=== PATIENT | female | born 1980 | race Caucasian/White ===

== ENCOUNTER 2016-05-30 12:49 | Inpatient (IN) | payer OTHER ==
--- NOTE | ~2016-05-30 | HP ---
Unit #: [id number] #: [id number] Patient: PAMELA MUNOZ [id number] [address] [address] [id number] I MR#: [id number] NAME: PAMELA MUNOZ ROOM: 93990 Age: 36 Sex: F Admission Date: 05/30/2016 : 1980 Attending Physician: Eloy Cleaning M.D. Primary Care Physician: [facility] HISTORY AND PHYSICAL REASON FOR ADMISSION 1. Right ureteral stone. 2. Pyelonephritis. HISTORY OF PRESENT ILLNESS The patient is a 36-year-old female with a history of nephrolithiasis. She began developing right flank pain approximately 4 to 5 days prior to admission which worsened yesterday. She was having chills and subjective fever. She has been having nausea but no vomiting. She presented to the emergency room. She was found to have a right 4 mm proximal ureteral stone and a temperature of 100.1. PAST SURGICAL HISTORY 1. Bilateral ureteroscopy. 2. . 3. Right arm surgery. PAST MEDICAL HISTORY Nephrolithiasis. HOME MEDICATIONS 1. Effexor. 2. Flonase. 3. Claritin. ALLERGIES No known drug allergies. FAMILY HISTORY Noncontributory. REVIEW OF SYSTEMS A 12-point review of systems was performed and was positive for right flank pain, fevers, nausea, chills. PHYSICAL EXAMINATION VITAL SIGNS: Temperature 100.1, blood pressure 134/96, pulse 89. HEENT: Normocephalic, atraumatic. NECK: No lymphadenopathy. LUNGS: Patient is breathing comfortably. ABDOMEN: Soft, nontender, nondistended. EXTREMITIES: No clubbing, cyanosis, or edema. DIAGNOSTIC STUDIES Unit #: [id number] #: [id number] Patient: PAMELA MUNOZ LABORATORY: Creatinine 0.6. White blood cell count 14.5. Urinalysis leukocyte esterase positive, nitrite positive, positive for blood, innumerable wbc's and 10-25 rbc's. IMAGING: CT scan of the abdomen and pelvis independently reviewed as above which reveals a right 4 mm proximal ureteral stone as well as some small right nonobstructing stones. ASSESSMENT AND PLAN 1. Right ureteral stone. 2. Pyelonephritis. PLAN 1. She has been admitted. 2. Will do blood and urine cultures. 3. Will do a cystoscopy, right retrograde pyelogram and right stent. The risks, benefits, and alternatives including bleeding, infection, damage to adjacent structures, the need for further surgery, need for nephrostomy tube and all other risks were discussed with patient. Rocephin has been administered. Dictated by Willard Omalley/usman TD: 05/30/2016 17:53 JOB #: [id number] HISTORY AND PHYSICAL Page 1 of 1 X Eloy Cleaning MD X HISTORY AND PHYSICAL
--- NOTE | ~2016-05-30 | DS ---
Unit #: [id number] #: [id number] Patient: PAMELA MUNOZ [id number] [address] [id number] I MR#: [id number] NAME: PAMELA MUNOZ ROOM: 45 Age: 36 Sex: F Admission Date: 05/30/2016 : 1980 Discharge Date: 06/01/2016 Attending Physician: Eloy Cleaning M.D. [facility] DIS[facility] SUMMARY PRIMARY DIAGNOSIS Obstructive right Escherichia coli pyelonephritis. PROCEDURE Cystoscopy with right stent placement, Dr. Cleaning, day of admission with retrogrades. HISTORY This patient presented symptomatic with a 4 mm right ureteral stone, fever, and urinary tract infection. She was taken to the operating room the day of admission and the above procedure performed. She had a Aguilar catheter in place and was treated with intravenous Rocephin. Postoperatively, her recovery was prompt and the next day, her catheter was able to be removed and she was voiding. She did, however, have a low potassium that required aggressive supplementation before achieving a potassium of 4.1 the day of discharge. Her admission white count of 14 corrected to 7.9. She did initially have some nausea and vomiting which resolved also. On the day of discharge, she was doing well in all regard simply waiting for the final culture results in the afternoon which showed pansensitive E. coli. DISCHARGE MEDICATIONS 1. Bactrim double strength one twice daily for 10 days. 2. Phenergan 25 mg #12 one every six hours as needed. 3. Percocet 5/325 #30 one to two every four to six hours as needed. 4. Routine home medications. Dictated by... Ramirez Plummer M.D. MARISA/steff TD: 06/03/2016 15:36 JOB #: [id number] CC: [facility]. Unit #: [id number] #: [id number] Patient: PAMELA MUNOZ DISCHARGE SUMMARY Page 1 of 1 X Ramirez Plummer MD X DISCHARGE SUMMARY
--- NOTE | ~2016-05-30 | CT4 ---
[facility] A Service of [facility] & [facility] RADIOLOGY TEXT RESULTS PATIENT: PAMEL[facility]UNOZ [facility] [id number] [birth year] UNIT #: [id number] AGE: [address]: Eloy Cleaning MD SEX: F ORDER DR: [id number] [facility] [address] [place], [place] [address] [id number] E MR#: [id number] Acc #: [id number] NAME: PAMELA MUNOZ : 1980 SEX: F STUDY DATE/TIME: 05/30/2016 14:07 UNIT: MARGARET ROOM: STUDY DESCRIPTION: CT Abd and Pelv Wo Cont Attending Physician: Mainor Ignacio M.D. Ordering Physician: Mainor Ignacio M.D. Primary Care Physician: [facility], MEDICAL IMAGING REPORT This report is preliminary unless electronic signature is present EXAM CT abdomen and pelvis without contrast 05/30/2016 1407 hours HISTORY 36-year-old woman with bilateral flank pain for 2 days. History of renal stents for stones. COMPARISON CT abdomen 06/30/2015 TECHNIQUE Helical noncontrasted images were obtained from the lung bases through the pubic symphysis. Sagittal and coronal reconstructions were performed. Total exam DLP 545 mGy-cm. This CT exam was performed with one or more of the following radiation dose reduction techniques: automatic control, adjustment of mA and/or kV according to patient size, and iterative reconstruction. FINDINGS Images through the lung bases are clear. There are no effusions. Images through the abdomen demonstrate a normal noncontrasted appearance of the liver, spleen, pancreas, gallbladder and bile ducts. The adrenal glands are normal. There are a few punctate 2 mm size stones in the mid right kidney nonobstructing. There is pelvocaliectasis moderate on the right with a right UPJ stone measuring 4 mm. This is similar in size to a previous renal pelvic stone on 06/30/2015. This could represent the same stone or a new stone. It does appear to be causing some degree of obstruction and likely symptoms today. The left kidney demonstrates no definite intrarenal stones. Previous left renal UPJ stone has resolved. There is no pelvocaliectasis or ureterectasis on the left. There are no ureteral or bladder calculi. [facility] A Service of [facility] & [facility] RADIOLOGY TEXT RESULTS PATIENT: PAMELA MUNOZ LOCATION: [facility] [id number] : [birth year] UNIT #: [id number] AGE: [address]: Eloy Cleaning MD SEX: F ORDER DR: Stomach and small bowel are normal. There is no evidence of appendicitis. The colon is decompressed. CT pelvis demonstrates anteverted uterus. There is no adnexal mass or free fluid. IMPRESSION 1. There is a 4 mm right UPJ stone with moderate pelvocaliectasis. Patient previously had a stone in the renal pelvis measuring 4 mm on 06/29/2014. This could represent distal migration of the same stone or a new stone. There a few punctate to 2 mm nonobstructing stones in the mid-right kidney. 2. No definite left intrarenal calculi. Previous left UVJ stone is no longer seen. There is no ureterectasis or ureteral calculus. 3. Normal appendix. Dictated by... Elenita Benoit M.D. THIS IS AN ELECTRONICALLY VERIFIED REPORT Elenita Benoit M.D. at 05/30/2016 5:20 PM MELY/kingsley TD: 05/30/2016 15:42 JOB #: [id number] MEDICAL IMAGING REPORT Page 1 of 1 COPY
--- NOTE | ~2016-05-30 | OR ---
Unit #: [id number] #: [id number] Patient: PAMELA MUNOZ [id number] [address] [address] [id number] Yenny MR#: [id number] NAME: PAMELA MUNOZ ROOM: 95787 Date of Procedure: 05/30/2016 Admission Date: 05/30/2016 Surgeon: Eloy Cleaning M.D. : 1980 Attending Physician: Eloy Cleaning M.D. Primary Care Physician: [facility]. PROCEDURE OPERATIVE NOTE PREOPERATIVE DIAGNOSES 1. Right ureteral stone. 2. Acute pyelonephritis. POSTOPERATIVE DIAGNOSES 1. Right ureteral stone. 2. Acute pyelonephritis. PROCEDURE PERFORMED 1. Cystoscopy. 2. Right retrograde pyelogram. 3. Interpretation of right retrograde pyelogram. 4. Right 6-Cymraes x 24 cm double-J stent. SURGEON Eloy Cleaning M.D. ANESTHESIA General. INDICATIONS FOR PROCEDURE Ms. Munoz is a pleasant 36-year-old female with a 4 mm proximal ureteral stone and acute pyelonephritis. The risks, benefits and alternatives including bleeding, infection, damage to adjacent structures, need for further surgery, need for nephrostomy tube and all the other risks were discussed with the patient. Informed consent was obtained. She wished to proceed. DESCRIPTION OF PROCEDURE Patient was taken to the operative suite and properly identified. After the application of satisfactory general anesthetic, the patient was placed in dorsal lithotomy position. All pressure points were padded to the satisfaction of the surgical, anesthetic and nursing teams. Her genitalia were prepped and draped in the usual sterile fashion. I first passed a 22-Cymraes cystoscope. The entire urethra was normal. The bladder had no tumor, stones or masses. I identified the right ureteral orifice. I passed a 0.035 Sensor wire which coiled in the kidney. I passed a Pollack catheter over the wire. I gently injected contrast. Findings were as follows. INTERPRETATION OF RIGHT RETROGRADE PYELOGRAM: There was moderate to severe hydroureteronephrosis to the level of the proximal ureter. There Unit #: [id number] #: [id number] Patient: PAMELA MUNOZ is a filling defect consistent with a stone. There is a single collecting system. I replaced the wire. I did send a urine culture from the kidney. I passed a 6-Cymraes x 24 cm double-J stent which coiled in the renal pelvis and the bladder. No string was attached. Bladder was emptied. Scope was removed. The patient tolerated the procedure well without complications. Dictated by... Eloy Cleaning M.D. SHELDON/margarito TD: 05/30/2016 18:17 JOB #: [id number] PROCEDURE OPERATIVE NOTE Page 1 of 1 X Eloy Cleaning MD X PROCEDURE OPERATIVE NOTE
[~2016-05-30 12:49] MED LIST: AZITHROMYCIN1 GM PO; BACTRIM DS TABL1 TAB PO; CIPRO PO; EFFEXOR XR150 MG PO; FLONASE 0.05% N16 G1; HYDROCODONE-APA1 T30 PO; NO MEDICATIONS; NORCO 7.5-3251 EACH PO; PERCOCET5/325 PO; PHENERGAN PO; PHENERGAN25 MG PO; PYRIDIUM PO; REGLAN PO; TAB A VITE1 EACH; TYLOX 5/500 CAP1 CAP PO; VICODIN 5/500 T1 TAB PO; ZANTAC150 MG PO; ZOFRAN ODT4 MG PO; ZOFRAN PO
[2016-05-30 13:06] LABS: URINE SOURCE CLEAN CATCH
[2016-05-30 13:07] LABS: BASOPHIL% 0.2 % (0-2.5); HEMATOCRIT 35.8 % (35.0-45.0); HEMOGLOBIN 12.1 gm/dL (12.0-16.0); LYMPHOCYTE# 0.5 X10e3 (1.0-3.5); LYMPHOCYTE% 3.1 % (17.0-45.0); MEAN CELL VOLUME 86.3 FL (83-96); MEAN CORPUSCULAR HEMOGLOBIN 29.2 PG (28-34); MEAN CORPUSCULAR HGB CONC 33.8 g/dL (30-36); MEAN PLATELET VOLUME 9.1 FL (6.5-11.5); MONOCYTE# 0.7 X10e3 (0-1.0); MONOCYTE% 4.7 % (3.0-12.0); NEUTROPHIL# 13.4 X10e3 (1.5-7.1); PLATELET COUNT 231 X10e3 (140-420); RED BLOOD COUNT 4.15 X10e (3.90-5.30); RED CELL DISTRIBUTION WIDTH 12.7 % (11.0-15.5); WHITE BLOOD COUNT 14.5 X10e3 (4.0-10.5)
[2016-05-30 13:08] LABS: DIFF IND NO
[2016-05-30 13:15] LABS: URINE APPEARANCE TURBID; URINE BILIRUBIN NEG (NEG); URINE BLOOD 2+ (NEG); URINE COLOR YELLOW; URINE GLUCOSE NEG (NEG); URINE KETONE TRACE (NEG); URINE LEUKOCYTE ESTERASE 3+ (NEG); URINE NITRATE POS (NEG); URINE PROTEIN 1+ (NEG); URINE SPECIFIC GRAVITY 1.023 (1.003-1.035)
[2016-05-30 13:18] LABS: CULTURE INDICATED? YES; URINE BACTERIA AUWI 4+ (NEGATIVE); URINE SQUAMOUS EPITHELIAL CELL MOD /[HPF]; UWBCS1 AUWI INNUM (0-5)
[2016-05-30 13:49] LABS: ALBUMIN SERUM 4.7 g/dL (3.5-5.0); BILIRUBIN, DIRECT 0.1 mg/dL (0.0-0.2); BILIRUBIN,INDIRECT 0.4 mg/dL (0.0-0.9); BILIRUBIN,TOTAL 0.5 mg/dL (0.2-2.0); CALCIUM SERUM 9.2 mg/dL (8.4-10.2); CREATININE SERUM 0.6 mg/dL (0.6-1.4); GLOM FILT RATE Estimated 118.9 mL/min (>60); PROTEIN TOTAL SERUM 7.4 g/dL (6.0-8.3)
[2016-05-30 13:50] LABS: POTASSIUM 2.8 mmol/L (3.5-5.1)
[2016-05-31 02:40] LABS: BASOPHIL% 0.1 % (0-2.5); HEMATOCRIT 29.6 % (35.0-45.0); HEMOGLOBIN 10.2 gm/dL (12.0-16.0); LYMPHOCYTE# 0.4 X10e3 (1.0-3.5); LYMPHOCYTE% 3.1 % (17.0-45.0); MEAN CELL VOLUME 85.4 FL (83-96); MEAN CORPUSCULAR HEMOGLOBIN 29.4 PG (28-34); MEAN CORPUSCULAR HGB CONC 34.4 g/dL (30-36); MEAN PLATELET VOLUME 8.9 FL (6.5-11.5); MONOCYTE# 0.5 X10e3 (0-1.0); MONOCYTE% 3.6 % (3.0-12.0); NEUTROPHIL# 11.9 X10e3 (1.5-7.1); NEUTROPHIL% 93.2 % (40-75); PLATELET COUNT 197 X10e3 (140-420); RED BLOOD COUNT 3.47 X10e (3.90-5.30); RED CELL DISTRIBUTION WIDTH 12.8 % (11.0-15.5); WHITE BLOOD COUNT 12.7 X10e3 (4.0-10.5)
[2016-05-31 02:42] LABS: DIFF IND NO
[2016-05-31 03:00] LABS: BUN/CREATININE RATIO 13.33; CALCIUM SERUM 8.1 mg/dL (8.4-10.2); CREATININE SERUM 0.6 mg/dL (0.6-1.4); GLOM FILT RATE Estimated 118.9 mL/min (>60)
[2016-06-01 00:41] LABS: BASOPHIL% 0.4 % (0-2.5); EOSINOPHIL# 0.2 X10e3 (0-0.7); HEMATOCRIT 28.7 % (35.0-45.0); HEMOGLOBIN 9.9 gm/dL (12.0-16.0); LYMPHOCYTE# 1.3 X10e3 (1.0-3.5); LYMPHOCYTE% 16.3 % (17.0-45.0); MEAN CELL VOLUME 86.1 FL (83-96); MEAN CORPUSCULAR HEMOGLOBIN 29.7 PG (28-34); MEAN CORPUSCULAR HGB CONC 34.5 g/dL (30-36); MEAN PLATELET VOLUME 8.8 FL (6.5-11.5); MONOCYTE# 0.8 X10e3 (0-1.0); NEUTROPHIL# 5.6 X10e3 (1.5-7.1); NEUTROPHIL% 71.3 % (40-75); PLATELET COUNT 186 X10e3 (140-420); RED BLOOD COUNT 3.33 X10e (3.90-5.30); RED CELL DISTRIBUTION WIDTH 13.1 % (11.0-15.5); WHITE BLOOD COUNT 7.9 X10e3 (4.0-10.5)
[2016-06-01 00:49] LABS: DIFF IND NO
[2016-06-01 01:02] LABS: CREATININE SERUM 0.6 mg/dL (0.6-1.4); GLOM FILT RATE Estimated 118.9 mL/min (>60); POTASSIUM 3.2 mmol/L (3.5-5.1)
[2016-06-01] MEDS ORDERED: PERCOCET5/325 PO (14:52)
[2016-06-01] MEDS ORDERED: BACTRIM DS TAB1 EACH PO (14:52)
[2016-06-01] MEDS ORDERED: PHENERGAN25 M1 PO (14:52)
== END 2016-06-01 15:48 | disposition home or self-care (01) | DRG 690 ==
LOC: CED 12:49 → CEDOF 15:25 → C4B 20:25
PROVIDERS: Emergency Medicine; Urology
PROC: 0T768DZ Dilation of Right Ureter with Intraluminal Device, Via Natural or Artificial Opening Endoscopic (ICD-10-PCS; 2016-05-30)
PROC: BT1DYZZ Fluoroscopy of Right Kidney, Ureter and Bladder using Other Contrast (ICD-10-PCS; principal; 2016-05-30 17:00)
DX: N10 Acute pyelonephritis (principal); N20.1 Calculus of ureter; B96.20 Unspecified Escherichia coli [E. coli] as the cause of diseases classified elsewhere; E87.6 Hypokalemia
CPT/HCPCS: 36415; 74176; 80048; 80076; 81003; 83605; 83690; 83735; 84132; 84703; 85025; 87040; 87086; 87088; 87186; 96361; 96365; 96367; 96375; 99285; C2617; J0330; J0696; J1100; J1170; J1650; J2250; J2270; J2405; J2550; J2765; J3010; J3475

== ENCOUNTER 2016-06-10 19:26 | Emergency (ER) | payer OTHER ==
--- NOTE | ~2016-06-10 | CR7 ---
[facility] A Service of [facility] & [facility] RADIOLOGY TEXT RESULTS PATIENT: PAMELA MUNOZ LOCATION: [facility] : [birth year] UNIT #: [id number] AGE: [address]: Mainor Ignacio MD SEX: F ORDER DR: [id number] [facility] [address] [place], [place] [address] [id number] E MR#: [id number] Acc #: [id number] NAME: PAMELA MUNOZ : 1980 SEX: F STUDY DATE/TIME: 06/10/2016 16:20 UNIT: [facility] ROOM: STUDY DESCRIPTION: CR Abdomen Single AP View Attending Physician: Mainor Ignacio M.D. Ordering Physician: Nikolai Kearney M.D. Primary Care Physician: [facility] MEDICAL IMAGING REPORT This report is preliminary unless electronic signature is present EXAM Portable abdomen. HISTORY Hematuria, low abdomen pain and right flank pain, chronic. FINDINGS Right double pigtail ureteral stent extends from the level of the right kidney to the urinary bladder. No urinary calculi are identified. Moderate amount of stool in nondistended colon and rectum. Mild left lumbar curve. No abnormal calcifications are identified. IMPRESSION 1. No urinary calculi are identified. Bowel contents overlying could partly obscure small stones. Right ureteral stent appears in satisfactory position. 2. Moderate amount of stool in nondistended colon. Dictated by... Jose Eduardo Camp M.D. THIS IS AN ELECTRONICALLY VERIFIED REPORT Jose Eduardo Camp M.D. at 06/11/2016 10:59 AM SARI/dominique TD: 06/11/2016 04:21 JOB #: [id number] MEDICAL IMAGING REPORT Page 1 of 1 COPY
[2016-06-10 17:05] LABS: BASOPHIL# 0.1 X10e3 (0-0.3); BASOPHIL% 0.8 % (0-2.5); EOSINOPHIL# 0.2 X10e3 (0-0.7); EOSINOPHIL% 3.2 % (0.0-7.0); HEMATOCRIT 35.2 % (35.0-45.0); HEMOGLOBIN 11.8 gm/dL (12.0-16.0); LYMPHOCYTE# 1.7 X10e3 (1.0-3.5); MEAN CORPUSCULAR HEMOGLOBIN 28.8 PG (28-34); MEAN CORPUSCULAR HGB CONC 33.5 g/dL (30-36); MEAN PLATELET VOLUME 8.7 FL (6.5-11.5); MONOCYTE# 0.5 X10e3 (0-1.0); MONOCYTE% 6.7 % (3.0-12.0); NEUTROPHIL# 5.3 X10e3 (1.5-7.1); NEUTROPHIL% 67.3 % (40-75); PLATELET COUNT 284 X10e3 (140-420); RED CELL DISTRIBUTION WIDTH 13.1 % (11.0-15.5); WHITE BLOOD COUNT 7.9 X10e3 (4.0-10.5)
[2016-06-10 17:07] LABS: DIFF IND NO
[2016-06-10 17:29] LABS: ALBUMIN SERUM 4.5 g/dL (3.5-5.0); ALKALINE PHOSPHATASE 54 U/L (32-92); ALT (SGPT) 23 U/L (10-40); AST (SGOT) 22 U/L (10-42); BILIRUBIN,TOTAL 0.5 mg/dL (0.2-2.0); BLOOD UREA NITROGEN 8 mg/dL (9-23); CALCIUM SERUM 9.2 mg/dL (8.4-10.2); CARBON DIOXIDE 28 mmol/L (22-31); CHLORIDE 103 mmol/L (100-111); CREATININE SERUM 0.8 mg/dL (0.6-1.4); GLOM FILT RATE Estimated 96.3 mL/min (>60); GLUCOSE FASTING 111 mg/dL (70-110); LIPASE 17 U/L (22-51); POTASSIUM 4.3 mmol/L (3.5-5.1); PROTEIN TOTAL SERUM 7.1 g/dL (6.0-8.3); SODIUM 140 mmol/L (135-145)
[2016-06-10 17:37] LABS: BILIRUBIN, DIRECT <0.1 mg/dL (0.0-0.2); BILIRUBIN,INDIRECT 0.4 mg/dL (0.0-0.9)
[~2016-06-10 19:26] MED LIST changes: +BACTRIM DS TAB1 EACH PO; +PHENERGAN25 M1 PO
[2016-06-10 19:29] LABS: URINE SOURCE CLEAN CATCH
[2016-06-10 19:34] LABS: URINE APPEARANCE TURBID; URINE BILIRUBIN NEG (NEG); URINE BLOOD 3+ (NEG); URINE COLOR ORANGE; URINE GLUCOSE NEG (NEG); URINE KETONE NEG (NEG); URINE LEUKOCYTE ESTERASE 2+ (NEG); URINE NITRATE NEG (NEG); URINE PH 5.5 (5-8); URINE PROTEIN 3+ (NEG); URINE SPECIFIC GRAVITY 1.023 (1.003-1.035); URINE UROBILINOGEN 0.2 MG/DL (NEG)
[2016-06-10 19:36] LABS: CULTURE INDICATED? YES; URBCS1 AUWI INNUM /[HPF] (0-2); URINE BACTERIA AUWI NEG (NEGATIVE); URINE SQUAMOUS EPITHELIAL CELL OCC /[HPF]; UWBCS1 AUWI 100-200 (0-5)
[2016-06-10 19:38] LABS: U HYALINE CASTS AUWI 0-2 /[LPF]
== END 2016-06-10 20:15 | disposition home or self-care (01) ==
LOC: CED 19:26
PROVIDERS: Emergency Medicine
DX: R10.9 Unspecified abdominal pain (principal); Z87.442 Personal history of urinary calculi; Z79.899 Other long term (current) drug therapy; Z88.8 Allergy status to other drugs, medicaments and biological substances
CPT/HCPCS: 36415; 74000; 80048; 80076; 81003; 83690; 85025; 87086; 96372; 99284; J1885

== ENCOUNTER 2016-07-18 16:51 | Emergency (ER) | payer OTHER ==
[2016-07-18 17:25] LABS: URINE SOURCE CLEAN CATCH
[2016-07-18 17:33] LABS: URINE APPEARANCE CLOUDY; URINE BILIRUBIN NEG (NEG); URINE BLOOD 1+ (NEG); URINE COLOR YELLOW; URINE GLUCOSE NEG (NEG); URINE KETONE NEG (NEG); URINE LEUKOCYTE ESTERASE 3+ (NEG); URINE NITRATE POS (NEG); URINE PH 6.5 (5-8); URINE PROTEIN 1+ (NEG); URINE SPECIFIC GRAVITY 1.023 (1.003-1.035)
[2016-07-18 17:36] LABS: CULTURE INDICATED? YES; URINE BACTERIA AUWI 4+ (NEGATIVE); URINE SQUAMOUS EPITHELIAL CELL MOD /[HPF]; UWBCS1 AUWI 200-300 (0-5)
== END 2016-07-18 18:32 | disposition home or self-care (01) ==
LOC: CFTX 16:51 → CED 16:51 → CFTX 17:25
PROVIDERS: Nurse Practitioner
DX: J02.0 Streptococcal pharyngitis (principal); N39.0 Urinary tract infection, site not specified; Z91.09 Other allergy status, other than to drugs and biological substances; Z88.8 Allergy status to other drugs, medicaments and biological substances
CPT/HCPCS: 81003; 84703; 87086; 87088; 87186; 87880; 96372; 99283; J0561